=== PATIENT | female | born 1960 | race Caucasian/White ===

== ENCOUNTER 2017-09-20 09:21 | Day surgery (SDC) | payer OTHER, SELFPAY ==
[2017-09-20 09:43] VITALS: BP 111/72; PULSE 66; RESP 14; TEMP 36.8; O2SAT 97; BMI 25.6
[2017-09-20] MEDS: Cefazolin 2 GM in 0.9% Normal Saline 100 ML IV (11:11)
--- NOTE | 2017-09-20 11:16 | DCINST_ITS ---
Discharge Diet: No Restrictions Discharge Activity: May not drive while taking narcotic pain medications. Call your doctor if you observe: Fever of 101 or Higher, Inability to urinate, Inability to have a bowel movement, Shortness of breath, Calf discomfort, Uncontrolled pain Allergies/Adverse Reactions: Allergies Sulfa (Sulfonamide Antibiotics) Allergy (Verified 09/20/17 09:41) Hives Medications to take at Discharge NK [NK] 09/19/17 Primary Care Physician: Yady Whitley,Out of [Primary Care Provider] - Test Results: Test results from this visit will be discussed in further detail at your follow- up appointment, if applicable. Please Follow Up With: Chloé Brooks MD - call for appt
[2017-09-20 11:55] VITALS: BP 111/72; BP 112/75; PULSE 73; RESP 14; TEMP 36.6; O2SAT 97
--- NOTE | 2017-09-20 11:56 | PCM.IMDPSTOP ---
Immediate Post-Op Note Date of Procedure: 09/20/17 Primary Surgeon/Physician: Chloé Brooks MD professional nurse: Chloé Brooks Pre-Operative Diagnosis: left ureteral calculus with hydronephrosis. Post-Operative Diagnosis: same Surgery/Procedure Performed:: cystoscopy, left ureteroscopy, laser lithotripsy and left ureteral stent insertion Description of Surgical Findings:: stone was at the ureteral orifice, easily lasered and removed. ureteroscopy performed into the renal pelvis with no other stones seen. left 6X24 stent inserted. Estimated Blood Loss: 2cc Specimen's removed: none Type of Anesthesia:: General Special Medications: ancef - Admit VTE Documentation VTE Present on Admission: Yes VTE Mechan Device Prophylaxis: SCD's VTE Pharm Prophylaxis ordered?: No Reason prophylaxis not ordered:: Treatment Not Indicated
--- NOTE | 2017-09-20 11:59 | OP.PN_ITS ---
Immediate Post-Op Note Date of Procedure: 09/20/17 Primary Surgeon/Physician: Chloé Brooks MD nail expert: Chloé Brooks Pre-Operative Diagnosis: left ureteral calculus with hydronephrosis. Post-Operative Diagnosis: same Surgery/Procedure Performed:: cystoscopy, left ureteroscopy, laser lithotripsy and left ureteral stent insertion Description of Surgical Findings:: stone was at the ureteral orifice, easily lasered and removed. ureteroscopy performed into the renal pelvis with no other stones seen. left 6X24 stent inserted. Estimated Blood Loss: 2cc Specimen's removed: none Type of Anesthesia:: General Special Medications: ancef - Admit VTE Documentation VTE Present on Admission: Yes VTE Mechan Device Prophylaxis: SCD's VTE Pharm Prophylaxis ordered?: No Reason prophylaxis not ordered:: Treatment Not Indicated
--- NOTE | 2017-09-20 11:59 | PCM.OPRPT ---
Problem List (1) Left ureteral calculus Status: Acute (2) Hydronephrosis Status: Acute Report of Operation Date of Procedure: 09/20/17 Pre-Operative Diagnosis: left ureteral calculus with hydronephrosis. Post-Operative Diagnosis: same Surgery/Procedure Performed:: cystoscopy, left ureteroscopy, laser lithotripsy and left ureteral stent insertion Description of Surgical Findings:: stone was at the ureteral orifice, easily lasered and removed. ureteroscopy performed into the renal pelvis with no other stones seen. left 6X24 stent inserted. juvenile counselor: Chloé Brooks Type of Anesthesia:: General Special Medications: ancef Specimen's removed: none Estimated Blood Loss (mL): 2cc Description of Procedure: The patient is a 57-year-old female who presented to the office yesterday with lower abdominal pain and a CAT scan report from July 2017 revealing distal left ureteral calculi with hydroureteronephrosis. She has had no fevers or chills. She agreed to proceed with surgical intervention after discussing all the risks benefits and alternatives including but not limited to the risks of anesthesia, infection, bleeding, injury and the need for further intervention. The patient was taken to the operating room and placed on the operating room table anesthesia monitored the head neck area IV access and vital signs throughout the case. Once anesthesia was appropriately administered the patient was placed into dorsal lithotomy position was prepped and draped in usual sterile fashion. A cystourethroscopy was then performed revealing no bladder mucosal or urethral mucosal abnormalities. The stone was seen in the distal ureter poking out of the orifice but too large to be removed with the basket. At this time ureteroscopy was performed with a 0.035 Glidewire as a safety wire and the stone was lasered into very small sections which were flushed out of the ureter without difficulty. Once the stone was appropriately lasered ureteroscopy was performed up into the renal pelvis. There were no other stones identified at this time. Using the indwelling safety wire, a 6 [place] 24 cm double-J stent was passed into the renal pelvis with good curling there and in the urinary bladder confirmed on fluoroscopic visualization. The patient's bladder was emptied and the string from the stent was secured to the inner thigh with tape. Patient was then awakened and taken to recovery room in good condition. There were no complications during this procedure. - Complications none - Admit VTE Documentation VTE Present on Admission: Yes VTE Mechan Device Prophylaxis: SCD's VTE Pharm Prophylaxis ordered?: No Reason prophylaxis not ordered:: Treatment Not Indicated
[2017-09-20 12:05] VITALS: BP 109/72; BP 111/72; PULSE 64; RESP 16; O2SAT 97
[2017-09-20 12:15] VITALS: BP 100/67; BP 111/72; PULSE 71; RESP 16; O2SAT 96
[2017-09-20 12:30] VITALS: BP 108/74; BP 111/72; PULSE 60; RESP 16; TEMP 36.7; O2SAT 100
[2017-09-20 13:21] VITALS: BP 111/72
== END 2017-09-20 13:20 | disposition home or self-care (01) ==
LOC: SDC 09:24 → AC 09:24
PROVIDERS: Visit Provider Urology
PROC: 0TJ98ZZ Inspection of Ureter, Via Natural or Artificial Opening Endoscopic (ICD-10-PCS; CPT 52352; principal; 2017-09-20 10:50)
DX: N13.2 Hydronephrosis with renal and ureteral calculous obstruction (principal); K21.9 Gastro-esophageal reflux disease without esophagitis; K58.9 Irritable bowel syndrome, unspecified; Z87.891 Personal history of nicotine dependence; Z87.442 Personal history of urinary calculi
CPT/HCPCS: 52356; 76000; J7120; C1769; C2617; J2405